=== PATIENT | female | born 1940 | race Caucasian/White ===

== ENCOUNTER → 2023-01-02 09:03 | Outpatient (CLI) | payer MEDICARE, OTHER, SELFPAY ==
--- NOTE | 2023-01-02 09:06 | DI.RAD.S_ITS ---
PROCEDURE: XR KUB INDICATIONS: kidney stones TECHNIQUE: One view of the abdomen acquired. COMPARISON: [facility], , CT ABDOMEN/PELVIS WITH CONTRAST, 11/12/2022, 11:29. FINDINGS: Surgical changes and devices: Left ureteral stent in place.. Bowel: Bowel gas pattern is normal. Soft tissues: Possible stones adjacent to the left ureteral stent in the left renal collecting system. Visualized solid organ contours appear normal in size. Bones: No suspicious bony lesions. IMPRESSION: Possible stones within the left renal pelvis adjacent to the stent, evaluation is limited secondary to body habitus. Dictated by: Jeff Avery M.D. on 01/02/2023 at 10:51 Approved by: Jeff Avery M.D. on 01/02/2023 at 10:53
== END ==
PROVIDERS: PCP Physician Assistant; Referring Provider Urology; Visit Provider Urology
DX: N13.2 Hydronephrosis with renal and ureteral calculous obstruction (principal); N30.01 Acute cystitis with hematuria; N28.1 Cyst of kidney, acquired; Z96.0 Presence of urogenital implants; Z98.890 Other specified postprocedural states
CPT/HCPCS: 74018; 81002; 87077; 87086; 87186

== ENCOUNTER → 2023-01-02 15:43 | Outpatient (CLI) | payer OTHER, SELFPAY | PROVIDERS: PCP Physician Assistant; Visit Provider Urology | DX: N20.0 Calculus of kidney (principal) | CPT/HCPCS: 87086 ==

== ENCOUNTER → 2023-01-11 10:17 | Outpatient (CLI) | payer MEDICARE, OTHER, SELFPAY ==
--- NOTE | 2023-01-11 10:19 | DI.CT.S_ITS ---
PROCEDURE: CT ABDOMEN PELVIS WO CON INDICATIONS: Follow-up kidney stones TECHNIQUE: Axial sections were acquired from the lung bases to the pubic symphysis. Coronal and sagittal reformats were performed. For radiation dose reduction, the following was used: automated exposure control, adjustment of mA and/or kV according to patient size. COMPARISON: [facility], , CT ABDOMEN/PELVIS WITH CONTRAST, 11/12/2022, 11:29. FINDINGS: Image quality: Excellent. Lung bases: Mild bronchiectasis in the right lung base. Heart: No significant findings. URINARY: Right Kidney: No stones or hydronephrosis. Right Ureter: No hydroureter. Left Kidney: The previously described 1.4 centimeter left renal stone is present within the left renal pelvis, between the nephroureteral stent pigtail (series 2, image 40). Interval collapse of the dominant cyst on the lateral pole of the left kidney. Left Ureter: No hydroureter. Bladder: Normal wall thickness. No stones. ABDOMEN: Liver: No contour-deforming solid mass. Gallbladder: Gallbladder sludge versus small stones. No wall thickening or pericholecystic edema to suggest acute cholecystitis. Biliary ducts: No biliary dilation. Pancreas: No ductal dilation. Spleen: Size is within normal limits. Adrenal Glands: No adrenal nodules. Stomach and Bowel: Normal colonic caliber, without significant wall thickening. Colonic diverticulosis without evidence of diverticulitis. Peritoneum: No abnormal intraperitoneal fluid. No free air. Ventral Wall: No hernia. Abdominal Nodes: No enlarged retroperitoneal or mesenteric lymph nodes. Vessels: Aorta and inferior vena cava are normal in size. PELVIS: Pelvic Organs: Unremarkable. Pelvic Nodes: Unremarkable. Miscellaneous: No inguinal hernias are seen. Bones: Significant heterogeneous attenuation across the left SI joint compared with prior. No adjacent abscess, but the joint space is widened. IMPRESSION: The left renal stone persists in the left renal pelvis. No hydronephrosis, status post nephroureteral stent placement. Interval significant heterogeneous attenuation across the left SI joint, with joint space widening. Differential for this process includes septic joint, significant sacroiliitis or less likely an insufficiency fracture. This had a normal appearance on comparison CT. Dictated by: Imtiaz Lima M.D. on 01/11/2023 at 12:45 Approved by: Imtiaz Lima M.D. on 01/11/2023 at 12:58
== END ==
PROVIDERS: PCP Physician Assistant; Referring Provider Urology; Visit Provider Urology
DX: N20.0 Calculus of kidney (principal); K57.90 Diverticulosis of intestine, part unspecified, without perforation or abscess without bleeding; Z96.0 Presence of urogenital implants
CPT/HCPCS: 74176

== ENCOUNTER → 2023-01-21 12:18 | Outpatient (CLI) | payer MEDICARE, OTHER, SELFPAY ==
--- NOTE | 2023-01-21 12:19 | DI.RAD.S_ITS ---
PROCEDURE: XR KUB INDICATIONS: Follow-up left kidney stone TECHNIQUE: One view of the abdomen acquired. COMPARISON: [facility], CT, CT ABDOMEN PELVIS WO CON, 01/11/2023, 10:24. [facility], CR, XR KUB, 01/02/2023, 10:15. FINDINGS: Surgical changes and devices: Double-J stent projects over the left pelvis similar in positioning comparison. Bowel: Bowel gas pattern is normal. Soft tissues: 8 mm calcification adjacent to the left ureteral stent. Visualized solid organ contours appear normal in size. Bones: No suspicious bony lesions. IMPRESSION: Unchanged appearance of stone within the left renal pelvis adjacent to the stent. Dictated by: Chuck Rodriguez M.D. on 01/22/2023 at 10:26 Approved by: Chuck Rodriguez M.D. on 01/22/2023 at 10:29
== END ==
PROVIDERS: PCP Physician Assistant; Referring Provider Urology; Visit Provider Urology
DX: N20.0 Calculus of kidney (principal); Z87.442 Personal history of urinary calculi; Z96.0 Presence of urogenital implants
CPT/HCPCS: 74018

== ENCOUNTER → 2023-02-08 09:24 | Outpatient (CLI) | payer MEDICARE, OTHER, SELFPAY | PROVIDERS: PCP Physician Assistant; Referring Provider Urology; Visit Provider Urology | DX: N30.01 Acute cystitis with hematuria (principal) | CPT/HCPCS: 87086 ==

== ENCOUNTER 2023-02-14 07:56 | Day surgery (SDC) | payer MEDICARE, OTHER, SELFPAY ==
[2023-02-07 13:22] VITALS: BMI 27.0
[2023-02-14 08:20] VITALS: BMI 29.3
[2023-02-14 08:28] VITALS: BP 146/75; PULSE 66; RESP 16; TEMP 36.2; O2SAT 97
[2023-02-14] MEDS: LACTATED RINGERS 1,000 ML 42 ML IV (08:36)
[2023-02-14] MEDS: ACETAMINOPHEN 325 MG TABLET 975 MG PO (08:40)
--- NOTE | 2023-02-14 08:45 | P.OP.PRE_ITS ---
Pre-operative Note COVID-19 COVID-19 status: Not tested Interval Note History & Physical reviewed/Exam performed by Physician: Yes Changes to H&P: No H&P completed within 30 days and has changed as indicated here:: H&P updated to day after counseling and examining patient
[2023-02-14] MEDS: CIPROFLOXACIN 400 MG/200 ML PIGGYBACK 200 MG IV (09:04)
--- NOTE | 2023-02-14 09:05 | SUR.OPER ---
Supine on ESWL table, head on pillow, arms padded and tucked at sides, legs uncrossed.
[2023-02-14 09:35] VITALS: BP 142/70; PULSE 63; RESP 17; TEMP 36.6; O2SAT 96
--- NOTE | 2023-02-14 09:40 | PM.OP.1 ---
Procedure & Clinicians Procedure: Left extracorporeal shockwave lithotripsy Same procedure as scheduled: Yes Indications: 83-year-old female was found to have a left-sided stone and had a stent placed elsewhere. At this point she presents to have the stone treated by left extracorporeal shockwave lithotripsy. Surgeon: Chuck Klein Click Yes if Unassisted: Yes Anesthesia Type: General Operative Notes Findings: At extracorporeal shockwave lithotripsy the stent was noted to be in good position by fluoroscopy. Stone was in the renal pelvis in approximately 8 mm. It received a total of 2000 shocks at level 7 and appeared to fragment completely. There were no other abnormalities noted. Closure Type: not applicable Specimen(s): none sent Prosthetic devices, grafts, tissues, transplants, or devices: None placed at this procedure patient with indwelling stent previously placed. Procedure in detail: Procedure in detail: After informed consent was obtained, the patient was identified and brought to the operating room where she was placed in the supine position on the Lithotripter. Once on the Lithotripter anesthesia was induced and maintained. Ensuring an adequate level of anesthesia and after time-out and administration of antibiotics the patient had the stone targeted via the imaging system and shockwave delivered at level 7. Periodic reimaging and re localization was performed to ensure maximal energy delivery to the stone. At 2000 shockwave the shockwave head was rotated out and fluoroscopy performed indicating that the stone had completely fragmented. At this point the patient was awakened having tolerated the procedure well and transferred to the postanesthesia Complications: none Post-operative Condition: stable Disposition: PACU Plan for aftercare: Patient is to strain her urine to follow up my office in 10-14 days with a KUB.
[2023-02-14 09:41] VITALS: BP 107/53; PULSE 61; RESP 16; RESP 21; O2SAT 96; O2SAT 98
[2023-02-14 09:50] VITALS: BP 127/57; PULSE 58; RESP 16; O2SAT 98
[2023-02-14 09:58] VITALS: BP 121/55; PULSE 59; RESP 19; TEMP 36.7; O2SAT 96
== END 2023-02-14 10:19 | disposition home or self-care (01) ==
PROVIDERS: PCP Physician Assistant; Referring Provider Urology; Visit Provider Urology
PROC: (CPT 50590; principal; 2023-02-14 09:15)
DX: N20.0 Calculus of kidney (principal)
CPT/HCPCS: 50590; 82962; J0744; J1100; J2405; J2704; J3010; J3490

== ENCOUNTER → 2023-02-25 11:36 | Outpatient (CLI) | payer MEDICARE, OTHER, SELFPAY ==
--- NOTE | 2023-02-25 11:38 | DI.RAD.S_ITS ---
PROCEDURE: XR KUB INDICATIONS: Calculus of Kidney TECHNIQUE: One view of the abdomen acquired. COMPARISON: [facility], CT, CT ABDOMEN PELVIS WO CON, 01/11/2023, 10:24. [facility], CR, XR KUB, 01/02/2023, 10:15. [facility], CR, XR KUB, 01/21/2023, 12:30. FINDINGS: Surgical changes and devices: Double-J stent within the pelvis and over the expected location of the left renal collecting system. The previous seen calcifications are not evident on today's of exam however projection lies over the spine somewhat limiting evaluation. Bowel: Bowel gas pattern is normal. Soft tissues: No suspicious abdominal calcifications. Visualized solid organ contours appear normal in size. Bones: No suspicious bony lesions. Prominent osteophytes of the bilateral acetabuli. IMPRESSION: No evidence of residual stone identified by radiograph. Dictated by: Chuck Rodriguez M.D. on 02/25/2023 at 12:32 Approved by: Chuck Rodriguez M.D. on 02/25/2023 at 12:35
== END ==
LOC: RAD 11:37
PROVIDERS: PCP Physician Assistant; Referring Provider Urology; Visit Provider Urology
DX: N20.0 Calculus of kidney (principal); Z96.0 Presence of urogenital implants
CPT/HCPCS: 74018

== ENCOUNTER → 2023-03-07 14:13 | Outpatient (CLI) | payer MEDICARE, OTHER, SELFPAY | PROVIDERS: PCP Physician Assistant; Visit Provider Urology | DX: N39.0 Urinary tract infection, site not specified (principal) | CPT/HCPCS: 87086 ==

== ENCOUNTER → 2023-03-15 13:33 | Outpatient (CLI) | payer MEDICARE, OTHER, SELFPAY | PROVIDERS: PCP Physician Assistant; Visit Provider Urology | DX: N39.0 Urinary tract infection, site not specified (principal); Z96.0 Presence of urogenital implants | CPT/HCPCS: 52310; 81002; 87086 ==

== ENCOUNTER → 2023-03-30 15:05 | Outpatient (CLI) | payer MEDICARE, OTHER, SELFPAY ==
[2023-03-30 16:04] LABS: Calcium 9.1 mg/dL (8.4-10.2); Phosphorous 3.5 mg/dL (2.8-4.1); Uric Acid 5.9 mg/dL (2.5-6.2)
[2023-04-02 01:09] LABS: Calcium 9.2 mg/dL (8.7-10.3); Parathyroid Hormone, Intact 60 pg/mL (15-65)
== END ==
PROVIDERS: PCP Physician Assistant; Referring Provider Urology; Visit Provider Urology
DX: N20.0 Calculus of kidney (principal); N28.1 Cyst of kidney, acquired; N13.30 Unspecified hydronephrosis; N39.0 Urinary tract infection, site not specified; Z87.442 Personal history of urinary calculi
CPT/HCPCS: 36415; 81002; 82310; 83970; 84100; 84550; 99213